=== PATIENT | female | born 1975 | race Two or more races ===

== ENCOUNTER 2020-10-19 10:38 | Emergency (ER) | payer OTHER ==
[~2020-10-19] VITALS: Ht 162.6 cm; Wt 72.6 kg
[2020-10-19] MEDS ORDERED: CLONAZEPAM2 MG PO (10:57)
[2020-10-19] MEDS ORDERED: ESCITALOPRAM OX10 MG PO (10:58)
[2020-10-19] MEDS ORDERED: AMBIEN5 MG (10:58)
== END 2020-10-19 14:13 | disposition home or self-care (01) ==
LOC: ER 10:38
DX: K52.9 Noninfective gastroenteritis and colitis, unspecified (principal); R53.81 Other malaise